=== PATIENT | female | born 1995 | race Caucasian/White ===

== ENCOUNTER 2021-10-16 21:59 | Emergency (ER) | payer OTHER ==
[2021-10-17 00:07] LABS: SARS-COV-2 RT PCR NEGATIVE (NEGATIVE)
[2021-10-17] MEDS ORDERED: HYDROCODONE/CHLORPHEN 5 ML/OSYR ONE (00:31)
--- NOTE | 2021-10-17 01:05 | EDPHYS ---
Physician Documentation [facility] Name: Rochelle Guajardo Age: 25 yrs Sex: Female : 1995 Arrival Date: 10/16/2021 Time: 22:04 Bed 19 Private MD: ED Physician Rafal Garcia HPI: 10/16 23:12 This 25 yrs old Female presents to ER via Ambulatory with complaints of Chest Pain, pm1 Breathing Difficulty, Cough. 23:12 The patient or guardian reports cough, with no sputum, flu symptoms. pm1 23:12 Onset: The symptoms/episode began/occurred 1 week(s) ago. Severity of symptoms: in the pm1 emergency department the symptoms are unchanged. Modifying factors: The symptoms are alleviated by nothing, the symptoms are aggravated by nothing. Associated signs and symptoms: Pertinent positives: Chills, chest pain with cough, ear pain. The patient has not recently seen a physician. 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 - Social history:: Smoking status: Patient denies any tobacco usage or history of. ROS: 23:12 Abdomen/GI: Negative for abdominal pain, nausea, vomiting, diarrhea, and constipation, pm1 Back: Negative for injury and pain, MS/Extremity: Negative for injury and deformity, Skin: Negative for injury, rash, and discoloration, Neuro: Negative for headache, weakness, numbness, tingling, and seizure. 23:12 Constitutional: Positive for chills, Negative for fever, poor PO intake. 23:12 ENT: Positive for ear pain, Negative for sore throat. 23:12 Cardiovascular: Positive for chest pain, with cough. 23:12 Respiratory: Positive for cough, Negative for shortness of breath. 23:12 All other systems are negative. pm1 Exam: 23:12 Constitutional: This is a well developed, well nourished patient who is awake, alert, pm1 and in no acute distress. Head/Face: Normocephalic, atraumatic. 23:12 Skin: Warm, dry with normal turgor. Normal color with no rashes, no lesions, and no evidence of cellulitis. MS/ Extremity: Pulses equal, no cyanosis. Neurovascular intact. Full, normal range of motion. 23:12 Eyes: Exam is negative for acute changes, Extraocular movements: no acute changes. 23:12 ENT: Exam is negative for acute changes, External ear(s): no acute changes, Ear canal(s): no acute changes, TM's: no acute changes, Mouth: Lips: normal, moist, Oral mucosa: normal, pink and intact, moist, Posterior pharynx: no acute changes. 23:12 Cardiovascular: Exam negative for acute changes, Rate: normal, Rhythm: regular, Pulses: no pulse deficits are appreciated. 23:12 Respiratory: Exam negative for acute changes, respiratory distress, shortness of breath, Breath sounds: are clear throughout. 23:12 Neuro: Exam negative for acute changes, Orientation: is normal, Mentation: is normal, Motor: is normal, moves all fours. Vital Signs: 22:15 BP 112 / 80; Pulse 95; Resp 18; Temp 97.6; Pulse Ox 100% on R/A; Weight 54.43 kg (R); bb Height 5 ft. 1 in. (154.94 cm) (R); Pain 6/10; 23:34 BP 114 / 78; Pulse 90; Resp 18; Temp 97.6; Pulse Ox 100% on R/A; Weight 52.62 kg; renata Height 5 ft. 1 in. (154.94 cm); Pain 0/10; 10/17 00:36 BP 115 / 90; Pulse 88; Resp 18; Temp 98.6; Pulse Ox 100% on R/A; Pain 0/10; renata 01:15 BP 115 / 90; Pulse 101; Resp 18; Temp 98.6; Pulse Ox 100% on R/A; Pain 0/10; renata 10/16 23:34 Body Mass Index 21.92 (52.62 kg, 154.94 cm) renata MDM: 10/16 23:08 Patient medically screened. pm1 10/17 01:04 Data reviewed: vital signs. Data interpreted: Pulse oximetry: on room air is 100 %. pm1 Interpretation: normal. Counseling: I had a detailed discussion with the patient and/or guardian regarding: the historical points, exam findings, and any diagnostic results supporting the discharge/admit diagnosis, lab results, the need for outpatient follow up, to return to the emergency department if symptoms worsen or persist or if there are any questions or concerns that arise at home. 01:06 ED course: [place] reviewed. pm1 10/16 23:12 Order name: COVID-19/FLU A+B (Document "Date of Onset" if Symptomatic); Complete Time: pm1 00:09 Administered Medications: 00:36 Drug: Tussionex Pennkinetic ER (chlorpheniramine-hydrocodone) Suspension 5 ml Route: PO;renata Disposition: 01:32 Co-signature as Attending Physician, Rafal Garcia MD I agree with the assessment and kdr plan of care. Disposition Summary: 10/17/21 01:04 Discharge Ordered Location: Home pm1 Problem: new pm1 Symptoms: have improved pm1 Condition: Stable pm1 Diagnosis - Acute upper respiratory infection, unspecified pm1 Followup: pm1 - With: Emergency Department - When: As needed - Reason: Worsening of condition Followup: pm1 - With: Private Physician - When: 2 - 3 days - Reason: Recheck today's complaints, Continuance of care, Re-evaluation by your physician Discharge Instructions: - Discharge Summary Sheet pm1 - Upper Respiratory Infection, Adult pm1 Forms: - Medication Reconciliation Form pm1 - Thank You Letter pm1 - Antibiotic Education pm1 - Prescription Opioid Use pm1 Prescriptions: - Guaifenesin AC 10-100 mg/5 mL Oral Liquid - take 10 milliliters by ORAL route every 4 hours As needed; 240 milliliter; pm1 Refills: 0, Product Selection Permitted Signatures: Dispatcher [employer] EDMS Rafal Garcia MD MD kdr Ballard, Brenda, RN RN bb Fortino Swann, MUSEUM PREPARATOR MUSEUM PREPARATOR pm1 Dina Norris RN RN renata Corrections: (The following items were deleted from the chart) 10/16 22:24 22:20 Allergies: Sulfa (Sulfonamide Antibiotics); bb bb
--- NOTE | 2021-10-17 01:05 | ER ---
Nurse's Notes [facility] Name: Rochelle Guajardo Age: 25 yrs Sex: Female : 1995 Arrival Date: 10/16/2021 Time: 22:04 Bed 19 Private MD: Diagnosis: Acute upper respiratory infection, unspecified Presentation: 10/16 22:15 Chief complaint: Patient states: covid like symptoms. chills, cough, tighness in chest bb and ear pain for 1 week with gradual worsening of symptoms. patient denies SOB. Coronavirus screen: Vaccine status: Patient reports being unvaccinated. Client denies travel out of the [place] in the last 14 days. Client presents with at least one sign or symptom that may indicate coronavirus-19. Standard/surgical mask placed on the client. Ebola Screen: No symptoms or risks identified at this time. Initial Sepsis Screen: Does the patient meet any 2 criteria? No. Patient's initial sepsis screen is negative. Does the patient have a suspected source of infection? No. Patient's initial sepsis screen is negative. Risk Assessment: Do you want to hurt yourself or someone else? Patient reports no desire to harm self or others. Onset of symptoms was October 09, 2021. 22:15 Method Of Arrival: Ambulatory bb 22:15 Acuity: CHRISTIE 3 bb Triage Assessment: 22:20 General: Appears in no apparent distress. comfortable, slender, Behavior is calm, bb cooperative. Pain: Complains of pain in chest Pain currently is 6 out of 10 on a pain scale. Neuro: Level of Consciousness is awake, alert, obeys commands, Oriented to person, place, time, situation, Gait is steady, Speech is normal. Cardiovascular: Capillary refill < 3 seconds. Respiratory: Airway is patent Trachea midline Respiratory effort is even, unlabored, Respiratory pattern is regular, symmetrical. 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 - Social history:: Smoking status: Patient denies any tobacco usage or history of. Screenin:34 Abuse screen: Denies threats or abuse. Denies injuries from another. Nutritional renata screening: No deficits noted. Tuberculosis screening: No symptoms or risk factors identified. Fall Risk None identified. Assessment: 23:33 Reassessment: Patient appears in no apparent distress at this time. General: Per pt's renata report,"...I've had a cough for about a week...I wanted to see if I had Covid" The pt is accompanied by a support dog, that is very well behaved. . Pain: Denies pain. 10/17 00:25 General: The pt is in NAD and resting in the room with her dog. . renata 00:37 General: The pt is awaiting dispo. . renata 01:17 Pain: Pain began none. renata 01:18 Pain: none. renata Vital Signs: 10/16 22:15 BP 112 / 80; Pulse 95; Resp 18; Temp 97.6; Pulse Ox 100% on R/A; Weight 54.43 kg (R); bb Height 5 ft. 1 in. (154.94 cm) (R); Pain 6/10; 23:34 BP 114 / 78; Pulse 90; Resp 18; Temp 97.6; Pulse Ox 100% on R/A; Weight 52.62 kg; renata Height 5 ft. 1 in. (154.94 cm); Pain 0/10; 10/17 00:36 BP 115 / 90; Pulse 88; Resp 18; Temp 98.6; Pulse Ox 100% on R/A; Pain 0/10; renata 01:15 BP 115 / 90; Pulse 101; Resp 18; Temp 98.6; Pulse Ox 100% on R/A; Pain 0/10; renata 10/16 23:34 Body Mass Index 21.92 (52.62 kg, 154.94 cm) renata ED Course: 10/16 22:04 Patient arrived in ED. bp1 22:19 Triage completed. bb 22:33 Arm band placed on. bb 22:56 Fortino Swann NP is PHCP. pm1 22:56 Rafal Garcia MD is Attending Physician. pm1 23:27 COVID-19/FLU A+B (Document "Date of Onset" if Symptomatic) Sent. lt3 23:32 Dina Norris, DINESH is Primary Nurse. renata 23:34 Patient has correct armband on for positive identification. Pt chooses to sit in chair, renata not the bed. 10/17 01:16 No provider procedures requiring assistance completed. Patient maintains SpO2 renata saturation greater than 95% on room air. 01:17 Pulse ox on. renata 01:17 Patient did not have IV access during this emergency room visit. renata Administered Medications: 00:36 Drug: Tussionex Pennkinetic ER (chlorpheniramine-hydrocodone) Suspension 5 ml Route: PO;renata Outcome: 01:04 Discharge ordered by . pm1 01:16 Discharged to home ambulatory. renata 01:16 Condition: stable 01:16 Discharge instructions given to patient, Instructed on discharge instructions, medication usage. 01:18 Patient left the ED. renata Signatures: Dina Pardo, RN RN bb Fortino Swann NP RIVET SORTER pm1 Rochelle Carroll Leah lt3 Dina Norris RN RN renata Corrections: (The following items were deleted from the chart) 10/16 22:24 22:20 Allergies: Sulfa (Sulfonamide Antibiotics); vanessa mendez
[2021-10-17 01:37] VITALS: O2SAT 100
[2021-10-17 01:40] VITALS: BP 115/90; TEMP 98.6
== END 2021-10-17 01:18 | disposition home or self-care (01) ==
LOC: ER 21:59
DX: J06.9 Acute upper respiratory infection, unspecified (principal); Z20.822 Contact with and (suspected) exposure to COVID-19; E11.9 Type 2 diabetes mellitus without complications; F20.9 Schizophrenia, unspecified; Z79.4 Long term (current) use of insulin; Z88.2 Allergy status to sulfonamides; Z91.040 Latex allergy status; Z91.048 Other nonmedicinal substance allergy status
CPT/HCPCS: 0240U; 99284